=== PATIENT | male | born 1965 | race Caucasian/White ===

== ENCOUNTER 2018-02-27 11:51 | Emergency (ER) | payer SELFPAY ==
[~2018-02-27] VITALS: Ht 170.2 cm; Wt 94.5 kg
[2018-02-27] MEDS ORDERED: NAPR250T4 PO (12:04)
[2018-02-27] MEDS ORDERED: KETOROLAC TROMETHAMINE 10 MG TABLET PO ONE (13:00)
[2018-02-27 14:01] VITALS: BP 127/80
== END 2018-02-27 14:00 | disposition home or self-care (01) ==
LOC: EMS 11:53
DX: S52.91XD Unspecified fracture of right forearm, subsequent encounter for closed fracture with routine healing (principal); M25.531 Pain in right wrist; M25.521 Pain in right elbow; Z47.89 Encounter for other orthopedic aftercare; X58.XXXD Exposure to other specified factors, subsequent encounter
CPT/HCPCS: 29105; 99283